=== PATIENT | male | born 1940 | race Caucasian/White ===

== ENCOUNTER 2020-07-18 21:34 | Emergency (ER) | payer BC, MEDICARE ==
--- NOTE | 2020-07-18 22:36 | EDM.PDOC ---
ED HPI GENERAL MEDICAL PROBLEM - General Chief Complaint: Neurological Problem Stated Complaint: POSSIBLE STROKE? Time Seen by Provider: 07/18/20 22:05 Source of Information: Reports: Patient History Limitations: Reports: No Limitations - History of Present Illness INITIAL COMMENTS - FREE TEXT/NARRATIVE: 79-year-old male has had difficulty with concentration for the last 8 hours. It is very subtle, he feels like he has to think hard which is unusual for him. He was somewhat confused about whether it was the weekend or not earlier today. His became concerned so he asked the neighbor to bring him in to check him for "a stroke". His speech is clear, his thought process at this time is normal, his neighbor thinks he looks good and he has no physical symptoms whatso ever. No double vision, dysarthria, expressive aphasia, weakness of the extremities, shortness of breath or palpitations. No recent trauma or fevers, no recent illness. He just claims that he is having some difficulty concentrating or maintaining a clear thought process. To the medical staff he looks normal, he knows his medications and his history and seems clear Onset: Sudden (He thinks this began around 3 PM, 7 hours ago) Associated Symptoms: Reports: Confusion (Very subtle and mild confusion according to the patient) - Related Data Allergies Allergy/AdvReac Type Severity Reaction Status Date / Time No Known Allergies Allergy Verified 07/18/20 21:59 Home Meds: Home Meds Acetaminophen [Tylenol Arthritis] 650 mg PO DAILY 07/18/20 [History] Aspirin [Halfprin] 81 mg PO DAILY 07/18/20 [History] Ezetimibe 1 tab PO DAILY 07/18/20 [History] Losartan Potassium 1 tab PO DAILY 07/18/20 [History] Metoprolol Succinate 100 mg PO DAILY 07/18/20 [History] Rosuvastatin [Crestor] 5 mg PO Q72H 07/18/20 [History] Past Medical History HEENT History: Reports: Hard of Hearing, Impaired Vision, Other (See Below) Musculoskeletal History: Reports: Arthritis Neurological History: Reports: Neuropathy, Peripheral Oncologic (Cancer) History: Reports: Other (See Below) Other Oncologic History: melanoma 30 years ago - Infectious Disease History Infectious Disease History: Reports: Chicken Pox, Measles - Past Surgical History GI Surgical History: Reports: Hernia, Abdominal Social & Family History - Tobacco Use Tobacco Use Status *Q: Never Tobacco User Second Hand Smoke Exposure: No - Caffeine Use Caffeine Use: Reports: Coffee Other Caffeine Use: 2 cups - Alcohol Use Days Per Week of Alcohol Use: 4 Number of Drinks Per Day: 2 Total Drinks Per Week: 8 - Recreational Drug Use Recreational Drug Use: No ED ROS GENERAL - Review of Systems Review Of Systems: See Below Constitutional: Denies: Fever, Chills HEENT: Reports: No Symptoms. Denies: Vision Change Respiratory: Denies: Shortness of Breath, Cough Cardiovascular: Denies: Chest Pain, Palpitations GI/Abdominal: Denies: Nausea, Vomiting : Reports: No Symptoms Skin: Reports: No Symptoms Neurological: Reports: Confusion (Mild, minimal confusion). Denies: Dizziness, Headache Psychiatric: Reports: No Symptoms ED EXAM, GENERAL - Physical Exam Exam: See Below Exam Limited By: No Limitations General Appearance: Alert, No Apparent Distress Eye Exam: Bilateral Eye: EOMI, Normal Inspection Head: Atraumatic Neck: Supple, Non-Tender. No: Carotid Bruit Respiratory/Chest: No Respiratory Distress, Lungs Clear Cardiovascular: Regular Rate, Rhythm, Systolic Murmur (Very faint systolic murmur), Extra Beats (Occasional extra beats) GI/Abdominal: Soft, Non-Tender Extremities: Normal Inspection Neurological: Alert, Oriented, No Motor/Sensory Deficits. No: Sensory/Motor Deficit Psychiatric: Normal Affect, Normal Mood Skin Exam: Warm, Dry Course - Vital Signs Last Recorded V/S: Last Vital Signs Temp 97.6 F 07/18/20 22:04 Pulse 83 07/18/20 22:46 Resp 16 07/18/20 22:04 BP 159/91 H 07/18/20 22:46 Pulse Ox 98 07/18/20 22:04 - Orders/Labs/Meds Labs: Laboratory Tests 07/18/20 07/18/20 07/18/20 Range/Units 22:35 22:35 22:35 WBC 11.1 H (4.5-11.0) K/uL RBC 4.48 (4.30-5.90) M/uL Hgb 14.0 (12.0-15.0) g/dL Hct 43.2 (40.0-54.0) % MCV 96 (80-98) fL MCH 31 (27-31) pg MCHC 32 (32-36) % Plt Count 192 (150-400) K/uL Neut % (Auto) 77 H (36-66) % Lymph % (Auto) 12 L (24-44) % Victoria % (Auto) 10 H (2-6) % Eos % (Auto) 1 L (2-4) % Baso % (Auto) 0 (0-1) % Sodium 141 (140-148) mmol/L Potassium 4.4 (3.6-5.2) mmol/L Chloride 105 (100-108) mmol/L Carbon Dioxide 24 (21-32) mmol/L Anion Gap 11.9 (5.0-14.0) mmol/L BUN 24 H (7-18) mg/dL Creatinine 1.2 (0.8-1.3) mg/dL Est Cr Clr Drug Dosing 58.68 mL/min Estimated GFR (MDRD) 58 L (>60) Glucose 96 (74-106) mg/dL Calcium 9.0 (8.5-10.1) mg/dL Total Bilirubin 0.7 (0.2-1.0) mg/dL AST 31 (15-37) U/L ALT 27 (12-78) U/L Alkaline Phosphatase 98 (46-116) U/L Total Protein 6.6 (6.4-8.2) g/dL Albumin 3.7 (3.4-5.0) g/dL Globulin 2.9 (2.3-3.5) g/dL Albumin/Globulin Ratio 1.3 (1.2-2.2) Urine Color Yellow (YELLOW) Urine Appearance Clear (CLEAR) Urine pH 5.5 (5.0-8.0) Ur Specific [facility] >= 1.030 (1.008-1.030) Urine Protein Negative (NEGATIVE) mg/dL Urine Glucose (UA) Negative (NEGATIVE) mg/dL Urine Ketones 15 H (NEGATIVE) mg/dL Urine Occult Blood Trace-intact H (NEGATIVE) Urine Nitrite Negative (NEGATIVE) Urine Bilirubin Negative (NEGATIVE) Urine Urobilinogen 0.2 (0.2-1.0) EU/dL Ur Leukocyte Esterase Negative (NEGATIVE) Urine RBC 0-5 (0-5) Urine WBC 0-5 (0-5) Ur Epithelial Cells Few Amorphous Sediment Few Urine Bacteria Few Urine Mucus Not seen - Re-Assessments/Exams Free Text/Narrative Re-Assessment/Exam: 07/18/20 22:47 Patient has not seen a doctor or had any work-up in some time. CBC, CMP, UA and head CT without contrast was obtained. 07/18/20 23:16 Patient remained relatively asymptomatic and stable. Labs were only positive indicating mild dehydration with a high urinary concentration, slightly decreased GFR and increased creatinine BUN. Head CT was negative, results as follows IMPRESSION: 1. No evidence of acute infarction, intracranial hemorrhage, or mass-effect seen. Please note that all CT scans at this facility use dose modulation, iterative reconstruction, and/or weight-based dosing when appropriate to reduce radiation dose to as low as reasonably achievable. Dictated by: Valdo Bolton MD @ 07/18/2020 23:13:[address] Sebastián Da Silva his primary provider, he will recheck in the next 24 to 48 hours if not improving while concentrating on staying hydrated. Dr. Da Silva will pursue an MRI if symptoms are not improving in the next several days. Departure - Departure Time of Disposition: 23:42 Disposition: Home, Self-Care 01 Clinical Impression: Confusion, Dehydration, mild - Discharge Information Instructions: Confusion Referrals: PCP,None [Primary Care Provider] - Forms: ED Department Discharge Care Plan Goals: Continue your regular medications, especially your aspirin daily. Stay hydrated, and recheck with Dr. Da Silva in the next several days if not improving satisfactorily. Call Dr. Da Silva's clinic tomorrow if not back to normal by noon. Return to the emergency room at any time if significant worsening or concerns. Sepsis Event Note (ED) - Evaluation Sepsis Screening Result: No Definite Risk - Focused Exam Vital Signs: Vital Signs Temp Pulse Resp BP Pulse Ox 07/18/20 22:46 83 159/91 H 07/18/20 22:04 97.6 F 93 16 154/106 H 98 07/18/20 21:53 97.6 F 93 16 154/106 H 98
--- NOTE | 2020-07-18 23:15 | CRLCT ---
INDICATION: Confusion TECHNIQUE: CT Head without i.v. contrast. COMPARISON: None FINDINGS: CSF space: Unremarkable for age. Brain: No evidence of mass, acute infarction or hemorrhage is seen. No mass-effect or midline shift is seen. Moderate diffuse cortical atrophy is noted. The brain parenchyma is otherwise normal in appearance with preservation of the gregg-white matter junction. Calvarium: The visualized paranasal sinuses are well aerated. The mastoid air cells are clear. The visualized orbits are grossly unremarkable. The calvarium is unremarkable in appearance with no fractures identified. IMPRESSION: 1. No evidence of acute infarction, intracranial hemorrhage, or mass-effect seen. Please note that all CT scans at this facility use dose modulation, iterative reconstruction, and/or weight-based dosing when appropriate to reduce radiation dose to as low as reasonably achievable. Dictated by: Valdo Bolton MD @ 07/18/2020 23:13:36 (Electronically Signed)
== END 2020-07-18 23:40 | disposition home or self-care (01) ==
LOC: JP.ED 21:34
DX: E86.0 Dehydration (principal); M19.90 Unspecified osteoarthritis, unspecified site; G62.9 Polyneuropathy, unspecified; Z79.82 Long term (current) use of aspirin; Z79.899 Other long term (current) drug therapy
CPT/HCPCS: 36415; 70450; 80053; 81001; 85025; 99283; 99285-25